=== PATIENT | female | born 1995 | race Caucasian/White ===

== ENCOUNTER 2017-08-03 20:45 | Emergency (ER) | payer BC ==
--- NOTE | 2017-08-03 22:03 | EDM.PDOC ---
ED HPI GENERAL MEDICAL PROBLEM - General Chief Complaint: Chest Pain Stated Complaint: CHEST PAIN Time Seen by Provider: 08/03/17 22:02 Source of Information: Reports: Patient History Limitations: Reports: No Limitations - History of Present Illness INITIAL COMMENTS - FREE TEXT/NARRATIVE: 21-year-old female presents for evaluation treatment of right-sided chest pain. Patient reports that the chest pain started yesterday around 1800. She describes as more of a discomfort than a pain. She feels deep breathing seems to make the discomfort worse. She reports since this started at 1800 yesterday it has been a constant pain. She denies any associated shortness of breath, vomiting or cough. She states she did fill nauseous yesterday for about 15 minutes but this resolved on its own. She reports at this point she woke up with a stuffy nose but denies any other cough or cold symptoms. She reports that she periodically gets crampy pain in her legs but she has not anything recently. Immunizations are up-to-date. Reports on July 25 she did have a long car ride from [place], approximately 7 hours. Patient is on oral contraceptives pills. Last menstrual period was about one month ago. Patient does not use any tobacco products. Right Chest Pain Score (Numeric/FACES): 4 - Related Data Allergies Allergy/AdvReac Type Severity Reaction Status Date / Time codeine Allergy Hives Verified 08/03/17 21:00 Sulfa (Sulfonamide Allergy Hives Verified 08/03/17 20:59 Antibiotics) Home Meds: Home Meds . [No Known Home Meds] 08/03/17 [History] Past Medical History Other HEENT History: wisdom teeth extracted Other Musculoskeletal History: foot surgery x 2 Psychiatric History: Reports: Anxiety Social & Family History - Tobacco Use Smoking Status *Q: Never Smoker Second Hand Smoke Exposure: No - Caffeine Use Caffeine Use: Reports: None - Recreational Drug Use Recreational Drug Use: No ED ROS GENERAL - Review of Systems Review Of Systems: See Below Respiratory: Reports: Pleuritic Chest Pain. Denies: Shortness of Breath, Cough Cardiovascular: Reports: Chest Pain (right anterior chest "discomfort") GI/Abdominal: Reports: Nausea (yesterday x 15 minutes, then resolved). Denies: Abdominal Pain, Vomiting Musculoskeletal: Denies: Leg Pain (reports she periodically experiences cramping in the bilateral legs, nothing recently, no recent swelling or pain) ED EXAM, GENERAL - Physical Exam Exam: See Below Exam Limited By: No Limitations General Appearance: Alert, WD/WN, No Apparent Distress Eye Exam: Bilateral Eye: Normal Inspection Ears: Normal External Exam Nose: Normal Inspection Throat/Mouth: Normal Inspection, Normal Voice, No Airway Compromise Neck: Normal Inspection Respiratory/Chest: No Respiratory Distress, Lungs Clear, Normal Breath Sounds, Chest Non-Tender Cardiovascular: Normal Peripheral Pulses, Regular Rate, Rhythm, No Murmur Neurological: Alert, Oriented, Normal Cognition Psychiatric: Normal Affect, Normal Mood Skin Exam: Warm, Dry, Normal Color EKG INTERPRETATION EKG Date: 08/03/17 Time: 21:05 Rhythm: NSR Rate (Beats/Min): 63 [place]: Normal P-Wave: Present QRS: Normal ST-T: Normal QT: Normal EKG Interpretation Comments: NSR at 63 bpm. No acute changes. Reviewed by myself and Dr. Zapata. Course - Vital Signs Last Recorded V/S: Last Vital Signs Temp 36.9 C 08/03/17 20:51 Pulse 71 08/03/17 20:51 Resp 13 08/03/17 20:51 BP 128/87 08/03/17 20:51 Pulse Ox 98 08/03/17 20:51 - Orders/Labs/Meds Labs: Laboratory Tests 08/03/17 08/03/17 08/03/17 Range/Units 22:10 22:10 22:10 WBC 8.24 (3.98-10.04) K/mm3 RBC 4.28 (3.98-5.22) M/mm3 Hgb 12.8 (11.2-15.7) gm/L Hct 37.9 (34.1-44.9) % MCV 88.6 (79.4-94.8) fl MCH 29.9 (25.6-32.2) pg MCHC 33.8 (32.2-35.5) g/dl RDW Std Deviation 42.9 (36.4-46.3) fL Plt Count 280 (182-369) K/mm3 MPV 9.6 (9.4-12.3) fl Neutrophils % (Manual) 55 (40-60) % Band Neutrophils % 0 (0-10) % Lymphocytes % (Manual) 36 (20-40) % Atypical Lymphs % 0 % Monocytes % (Manual) 5 (2-10) % Eosinophils % (Manual) 4 (0.7-5.8) % Basophils % (Manual) 0 L (0.1-1.2) Platelet Estimate Adequate RBC Morph Comment Normal D-Dimer, Quantitative < 0.19 L (0.19-0.59) mg/L Sodium 140 (136-145) mEq/L Potassium 3.9 (3.5-5.1) mEq/L Chloride 108 H (98-107) mEq/L Carbon Dioxide 25 (21-32) mEq/L Anion Gap 10.9 (5-15) BUN 12 (7-18) mg/dL Creatinine 0.8 (0.55-1.02) mg/dL Est Cr Clr Drug Dosing 118.48 mL/min Estimated GFR (MDRD) > 60 (>60) mL/min BUN/Creatinine Ratio 15.0 (14-18) Glucose 90 (74-106) mg/dL Calcium 8.5 (8.5-10.1) mg/dL Total Bilirubin 0.2 (0.2-1.0) mg/dL AST 22 (15-37) U/L ALT 25 (14-59) U/L Alkaline Phosphatase 40 L (46-116) U/L Troponin I < 0.017 (0.00-0.056) ng/mL C-Reactive Protein < 0.2 (<1.0) mg/dL Total Protein 6.4 (6.4-8.2) g/dl Albumin 3.3 L (3.4-5.0) g/dl Globulin 3.1 gm/dL Albumin/Globulin Ratio 1.1 (1-2) - Radiology Interpretation Free Text/Narrative:: chest xray shows no acute intrathoracic process - Re-Assessments/Exams Free Text/Narrative Re-Assessment/Exam: 08/03/17 23:00 I reviewed the EKG, chest x-ray and lab results with the patient. I feel this is likely musculoskeletal in origin. Instructed to use Tylenol Motrin. Follow- up with primary care provider. I realized I intended to order an HCG on the patient but missed this in the initial orders. Offered to the patient but she declines. Discharge instructions as documented. Departure - Departure Time of Disposition: 23:04 Disposition: Home, Self-Care 01 Condition: Good Clinical Impression: Chest wall pain Instructions: Chest Wall Pain, [id number] Referrals: Diya Whitaker MD [Primary Care Provider] - Forms: ED Department Discharge Additional Instructions: [id number] Tylenol or Motrin as needed for pain relief. Follow up with your primary care provider for symptoms persist beyond one week. May try heat or ice to the sore area. Please return to the ER if your symptoms change or worsen.
--- NOTE | 2017-08-04 15:34 | CR ---
Chest: Two views of the chest were obtained. Comparison: No previous study. Heart size and mediastinum are normal. Lungs are clear. Bony structures are unremarkable. Impression: 1. Nothing acute is identified on two-view chest x-ray. Diagnostic code #1
== END 2017-08-03 23:19 | disposition home or self-care (01) ==
LOC: JD.ED 20:45
DX: R07.89 Other chest pain (principal); Z88.5 Allergy status to narcotic agent; Z88.2 Allergy status to sulfonamides
CPT/HCPCS: 36415; 71046; 71046-26; 80053; 84484; 85025; 85379; 86140; 93005; 93010; 99285; 99285-25

== ENCOUNTER 2022-12-15 22:44 | Inpatient (IN) | payer BC ==
[2022-12-16] MEDS ORDERED: Bupivacaine 0.25% 10 ML SDV ONE
[2022-12-16] MEDS ORDERED: Sodium Chloride 0.9% 10 ML Syringe FLUSH PRN (00:35)
[2022-12-16] MEDS ORDERED: Lidocaine 1% 50 ML MDV INJECT PRN (00:45)
[2022-12-16] MEDS ORDERED: Calcium Carbonate 500 MG Tab.Chew PO PRN (00:45)
[2022-12-16] MEDS ORDERED: Ondansetron 4 MG/2 ML SDV IVPUSH PRN (00:45)
[2022-12-16] MEDS ORDERED: Oxytocin/Lactated Ringers 10 UNIT/1,000 ML BAG IV SCH ×2 (00:45)
[2022-12-16 01:03] LABS: BASOPHILS ABSOLUTE AUTO 0.02 K/mm3 (0.01-0.08); BASOPHILS PERCENT AUTO 0.2 % (0.1-1.2); EOSINOPHILS ABSOLUTE AUTO 0.36 K/mm3 (0.04-0.36); EOSINOPHILS PERCENT AUTO 3.2 (0.7-5.8); HEMOGLOBIN 12.6 gm/dl (11.2-15.7); IMMATURE GRAN ABSOLUTE AUTO 0.02 K/mm3 (0.00-0.10); IMMATURE GRAN PERCENT AUTO 0.2 % (<=1.0); LYMPHOCYTES ABSOLUTE AUTO 2.25 K/mm3 (1.18-3.74); MEAN CORPUSCULAR HEMOGLOBIN 29.4 pg (25.6-32.2); MEAN CORPUSCULAR HGB CONC 33.2 g/dl (32.2-35.5); MEAN CORPUSCULAR VOLUME 88.8 fl (79.4-94.8); MEAN PLATELET VOLUME 9.8 fl (9.4-12.3); MONOCYTES ABSOLUTE AUTO 1.47 K/mm3 (0.24-0.36); MONOCYTES PERCENT AUTO 13.1 % (4.7-12.5); NEUTROPHILS ABSOLUTE AUTO 7.12 K/mm3 (1.56-6.13); NEUTROPHILS PERCENT AUTO 63.3 % (34.0-71.1); PLATELET COUNT,PLT 252 K/mm3 (182-369); RED BLOOD CELL COUNT 4.28 M/mm3 (3.98-5.22); WHITE BLOOD CELL COUNT,WBC 11.24 K/mm3 (3.98-10.04)
[2022-12-16] MEDS: Lactated Ringers 1,000 ML IV SCH ×2 (01:30→15:10)
[2022-12-16] MEDS ORDERED: Sertraline 25 MG Tab PO SCH (09:00)
[2022-12-16] MEDS: Nalbuphine 10 MG/0.5 ML Syringe IVPUSH PRN ×2 (10:29→12:31)
[2022-12-16] MEDS ORDERED: fentaNYL 100 MCG/2 ML SDV EPIDUR PRN (12:57)
[2022-12-16] MEDS ORDERED: ePHEDrine 50 MG/ML SDV IVPUSH PRN (12:57)
[2022-12-16] MEDS ORDERED: Bupivacaine/fentaNYL/NS 100 ML Bag EPIDUR PRN (12:57)
[2022-12-16] MEDS ORDERED: diphenhydrAMINE 50 MG/ML SDV IVPUSH PRN (12:57)
[2022-12-16] MEDS ORDERED: Witch Hazel Medicated Pads 40/Jar TOP PRN (20:31)
[2022-12-16] MEDS ORDERED: Ibuprofen 600 MG Tab PO PRN (20:31)
[2022-12-16] MEDS ORDERED: Acetaminophen 325 MG Tab PO PRN (20:31)
[2022-12-16] MEDS ORDERED: Benzocaine/Menthol 20%-0.5% Spray 78 GM Cannister TOP PRN (20:31)
[2022-12-17] MEDS ORDERED: Sertraline 25 MG Tab PO SCH (09:00)
== END 2022-12-18 10:00 | disposition home or self-care (01) | DRG 560 ==
LOC: JD.OBCHECK 22:44 → JD.OB 22:51 → JD.OBCHECK 12-16 02:15 → JD.OB 12-16 02:17 → OBSVTOIN 12-16 18:10 → JD.OB 12-16 18:19
PROVIDERS: ADMIT Family Medicine; ATTEND Family Medicine
PROC: 10E0XZZ Delivery of Products of Conception, External Approach (ICD-10-PCS; principal; 2022-12-16)
PROC: 3E0R3BZ Introduction of Anesthetic Agent into Spinal Canal, Percutaneous Approach (ICD-10-PCS; 2022-12-16)
PROC: 00HU33Z Insertion of Infusion Device into Spinal Canal, Percutaneous Approach (ICD-10-PCS; 2022-12-16)
DX: O42.12 Full-term premature rupture of membranes, onset of labor more than 24 hours following rupture (principal); Z3A.40 40 weeks gestation of pregnancy; Z37.0 Single live birth; O69.81X0 Labor and delivery complicated by cord around neck, without compression, not applicable or unspecified; O99.344 Other mental disorders complicating childbirth; F41.9 Anxiety disorder, unspecified
CPT/HCPCS: 01967; 36415; 51702; 59025; 59409; 85025; 86592; A9270-GY; J2300; J2405; J2590; J3010; J3490; J7120

== ENCOUNTER 2024-09-21 23:56 | Inpatient (IN) | payer BC ==
[2024-09-22] MEDS ORDERED: Lidocaine 1% 50 ML MDV INJECT PRN (00:23)
[2024-09-22] MEDS ORDERED: Nalbuphine 10 MG/1 ML Vial IVPUSH PRN (00:23)
[2024-09-22] MEDS ORDERED: Ondansetron 4 MG/2 ML SDV IVPUSH PRN (00:23)
[2024-09-22] MEDS ORDERED: Oxytocin/0.9 % Sodium Chloride 30 UNIT/500 ML BAG IV SCH (00:30)
[2024-09-22 00:37] LABS: BASOPHILS PERCENT AUTO 0.2 % (0.0-1.0); EOSINOPHILS ABSOLUTE AUTO 0.2 K/mm3 (0.0-0.4); EOSINOPHILS PERCENT AUTO 1.9 % (0.0-6.0); HEMATOCRIT 39.2 % (37.0-47.0); HEMOGLOBIN 13.4 gm/dl (12.0-16.0); IMMATURE GRAN ABSOLUTE AUTO 0.02 K/mm3 (0.00-0.05); IMMATURE GRAN PERCENT AUTO 0.2 % (0.0-0.4); LYMPHOCYTES ABSOLUTE AUTO 2.1 K/mm3 (1.0-4.8); LYMPHOCYTES PERCENT AUTO 22.6 % (24.0-44.0); MEAN CORPUSCULAR HEMOGLOBIN 29.2 pg (28.0-32.0); MEAN CORPUSCULAR HGB CONC 34.2 g/dl (32.0-36.0); MEAN CORPUSCULAR VOLUME 85.4 fl (83.0-99.0); MEAN PLATELET VOLUME 9.8 fl (9.4-12.3); MONOCYTES ABSOLUTE AUTO 0.8 K/mm3 (0.0-0.8); MONOCYTES PERCENT AUTO 8.7 % (0.0-8.0); NEUTROPHILS ABSOLUTE AUTO 6.2 K/mm3 (1.8-7.7); NEUTROPHILS PERCENT AUTO 66.4 % (41.0-71.0); PLATELET COUNT,PLT 291 K/mm3 (150-400); RED BLOOD CELL COUNT 4.59 M/mm3 (4.10-5.30); WHITE BLOOD CELL COUNT,WBC 9.41 K/mm3 (3.9-11.3)
[2024-09-22] MEDS ORDERED: ePHEDrine 50 MG/ML SDV IVPUSH PRN (02:26)
[2024-09-22] MEDS ORDERED: diphenhydrAMINE 50 MG/ML SDV IVPUSH PRN (02:26)
[2024-09-22] MEDS: Lactated Ringers 1,000 ML IV SCH (02:30)
[2024-09-22] MEDS: fentaNYL 100 MCG/2 ML SDV EPIDUR PRN (02:37)
[2024-09-22] MEDS: Bupivacaine/fentaNYL/NS 100 ML Bag EPIDUR PRN (02:39)
[2024-09-22] MEDS: Ibuprofen 600 MG Tab PO SCH ×2 (09:57→14:21)
[2024-09-22] MEDS: Witch Hazel Medicated Pads 40/Jar TOP PRN (10:13)
[2024-09-22] MEDS: Benzocaine/Menthol 20%-0.5% Spray 78 GM Cannister TOP PRN (10:13)
[2024-09-22] MEDS: Ondansetron 4 MG/2 ML SDV IVPUSH PRN (14:29)
[2024-09-22] MEDS: Lactated Ringers 1,000 ML IV ONE (14:59)
[2024-09-22] MEDS: Docusate Sodium 100 MG Cap PO PRN (20:59)
[2024-09-22] MEDS: Ondansetron 4 MG Tab.DIS PO ONE (23:08)
[2024-09-23] MEDS: Acetaminophen 325 MG Tab PO PRN (09:16)
== END 2024-09-23 11:10 | disposition home or self-care (01) | DRG 560 ==
LOC: JD.OBCHECK 23:56 → JD.OB 09-22 → JD.OBCHECK 09-22 00:02 → JD.OB 09-22 00:02 → OBSVTOIN 09-22 08:37
PROVIDERS: ADMIT Family Medicine; ATTEND Family Medicine
PROC: 10E0XZZ Delivery of Products of Conception, External Approach (ICD-10-PCS; principal; 2024-09-22)
PROC: 3E0R3BZ Introduction of Anesthetic Agent into Spinal Canal, Percutaneous Approach (ICD-10-PCS; 2024-09-22)
PROC: 00HU33Z Insertion of Infusion Device into Spinal Canal, Percutaneous Approach (ICD-10-PCS; 2024-09-22)
DX: O99.344 Other mental disorders complicating childbirth (principal); Z37.0 Single live birth; F41.9 Anxiety disorder, unspecified; Z79.899 Other long term (current) drug therapy; Z3A.39 39 weeks gestation of pregnancy; Z88.5 Allergy status to narcotic agent; Z88.2 Allergy status to sulfonamides; Z88.7 Allergy status to serum and vaccine; Z98.890 Other specified postprocedural states
CPT/HCPCS: 36415; 51701; 59025; 59409; 85025; 86592; A9270-GY; C1758; J2405; J3010; J3490; J7120